=== PATIENT | female | born 1940 | race Caucasian/White ===

== ENCOUNTER → 2016-09-23 13:38 | Outpatient (CLI) | payer MEDICARE, OTHER | END | disposition home or self-care (01) | LOC: D.MRI 09-20 16:00 | DX: M54.12 Radiculopathy, cervical region (principal); S42.202A Unspecified fracture of upper end of left humerus, initial encounter for closed fracture ==

== ENCOUNTER 2017-07-02 10:01 | Emergency (ER) | payer MEDICARE, OTHER | END 2017-07-02 12:50 | disposition home or self-care (01) | LOC: D.ER 10:01 | DX: S20.212A Contusion of left front wall of thorax, initial encounter (principal); W18.30XA Fall on same level, unspecified, initial encounter; Y93.89 Activity, other specified; Y92.029 Unspecified place in mobile home as the place of occurrence of the external cause ==

== ENCOUNTER → 2017-12-23 08:52 | Outpatient (CLI) | payer MEDICARE, OTHER | END | disposition home or self-care (01) | LOC: D.MRI 08:52 | DX: M54.2 Cervicalgia (principal) ==

== ENCOUNTER → 2018-05-12 16:40 | Outpatient (CLI) | payer MEDICARE, OTHER | END | disposition home or self-care (01) | LOC: D.MAMMO 10:30 | DX: N64.4 Mastodynia (principal) ==